=== PATIENT | male | born 1980 | race Caucasian/White ===

== ENCOUNTER 2025-02-12 05:26 | Emergency (ER) | payer BC ==
[~2025-02-12] VITALS: Ht 188 cm; Wt 113.4 kg
[~2025-02-12 05:26] MED LIST: ALBU90OI INH; ALBU90OI61 INH; AMOCLA500 PO; AZIT250 PO; CEPH500 PO; CRUTCH USE; CYCL10 PO; Cyclobenzaprine5 MG PO; FLUO10 PO; HYDACE5 PO; IBUP800 PO; NAPR500 PO; Naprosyn500 MG PO; PENVK500 PO; RXCYCL10 PO; RXHYDACE PO
[2025-02-12 06:06] VITALS: BP 133/91
[2025-02-12] MEDS ORDERED: DiphenhydrAMINE HCL 25 MG Cap PO ONE (06:15)
[2025-02-12] MEDS ORDERED: Dexamethasone Sod Phos 10 MG/ML 1ML VIAL PO ONE (06:50)
== END 2025-02-12 07:02 | disposition home or self-care (01) ==
LOC: ER 05:26
DX: L27.0 Generalized skin eruption due to drugs and medicaments taken internally (principal); T36.8X5A Adverse effect of other systemic antibiotics, initial encounter; Z88.0 Allergy status to penicillin; Z88.5 Allergy status to narcotic agent; Z79.899 Other long term (current) drug therapy; Z79.51 Long term (current) use of inhaled steroids
CPT/HCPCS: 99283; A9270; J1100

== ENCOUNTER 2025-06-02 01:24 | Emergency (ER) | payer BC ==
[~2025-06-02] VITALS: Ht 190.5 cm; Wt 108.9 kg
[2025-06-02 03:16] VITALS: BP 156/88
[2025-06-02] MEDS ORDERED: HYDROcodone 5-APAP 325 TAB PO ONE (03:55)
[2025-06-02] MEDS ORDERED: AMOCLA875 PO (04:00)
[2025-06-02] MEDS ORDERED: HYDR1TAB94 PO (04:00)
== END 2025-06-02 04:32 | disposition home or self-care (01) ==
LOC: ER 01:24
DX: K04.7 Periapical abscess without sinus (principal); F17.200 Nicotine dependence, unspecified, uncomplicated; Z88.1 Allergy status to other antibiotic agents; Z88.2 Allergy status to sulfonamides; Z79.899 Other long term (current) drug therapy
CPT/HCPCS: A9270